=== PATIENT | male | born 1945 | race Caucasian/White ===

== ENCOUNTER 2019-10-04 06:56 | Day surgery (SDC) ==
--- NOTE | 2019-09-20 08:30 | EKG Report ---
Test Performed on : 09/20/2019 08:22:21 AM Test Reason : PAT Blood Pressure : / mmHG Vent. Rate : 074 BPM Atrial Rate : 074 BPM P-R Int : 218 ms QRS Dur : 092 ms QT Int : 400 ms P-R-T Axes : 054 039 019 degrees QTc Int : 444 ms Sinus rhythm. with 1st degree AV block. Otherwise normal ECG When compared with ECG of 19-JUN-2017 12:35, premature ventricular complexes. are no longer present Criteria for Inferior infarct are no longer present Confirmed by Charlie WERNER, P.J.M ([id number]) on 09/20/2019 7:59:10 PM
[2019-09-20 08:50] LABS: URINE SOURCE CLEAN CATCH
[2019-09-20 09:07] LABS: BASO# 0.05 X1000 (0.0-0.2); BASO% 0.7 % (0.0-0.8); EOS# 0.21 X1000 (0.0-0.7); EOS% 2.9 % (0.0-10.0); HEMATOCRIT 44.3 % (42.0-52.0); HEMOGLOBIN 14.5 g/dL (14.0-18.0); LYMPH# 1.62 X1000 (1.2-3.4); LYMPH% 22.3 % (20.5-51.1); MCH 28.8 PG (27-31); MCHC 32.7 g/dL (33-37); MCV 87.9 FL (81-99); MONO# 0.54 X1000 (0.11-0.59); MONO% 7.4 % (1.7-9.3); MPV 10.5 FL (7.4-10.4); NEUT# 4.85 X1000 (1.4-6.5); NEUT% 66.7 % (42.2-75.2); PLT 250 X1000 (130-400); RBC 5.04 XMIL (4.7-6.1); RDW 13.6 % (11.5-14.5); WBC 7.27 X1000 (4.8-10.8)
[2019-09-20 09:10] LABS: BILIRUBIN URINE NEGATIVE (NEGATIVE); BLOOD URINE NEGATIVE (NEGATIVE); COLOR YELLOW; GLUCOSE URINE NEGATIVE (NEGATIVE); KETONE URINE NEGATIVE (NEGATIVE); LEUKOCYTES URINE SMALL (NEGATIVE); NITRITE URINE NEGATIVE (NEGATIVE); PH URINE 5.5; PROTEIN URINE NEGATIVE (NEGATIVE); SP GRAVITY URINE 1.018; TURBIDITY URINE HAZY (CLEAR); UROBILINOGEN URINE NORMAL (NORMAL)
[2019-09-20 09:12] LABS: UR EPITHELIAL CELLS <10 /HPF (<10); URINE BACTERIA NEGATIVE /HPF; URINE RBC <10 /HPF (<10); URINE WBC <10 /HPF (<10)
[2019-09-20 09:21] LABS: INR 1.98; PROTIME 22.9 Seconds (11.0-16.0)
[2019-09-20 09:24] LABS: PTT 40.2 Seconds (22.3-41.8)
[2019-09-20 09:37] LABS: HEMOGLOBIN A1C 5.6 % (4.8-6.0)
[2019-09-20 09:42] LABS: CALCIUM 9.1 mg/dL (8.8-10.2); CREATININE 1.2 mg/dL (0.7-1.2); POTASSIUM 3.7 mmol/L (3.5-5.1)
[2019-10-04] MEDS ORDERED: REGLAN ONE (07:27)
[2019-10-04] MEDS ORDERED: COLACE ONE (07:27)
[2019-10-04] MEDS ORDERED: PEPCID ONE (07:27)
[2019-10-04] MEDS ORDERED: LYRICA ONE (07:28)
[2019-10-04] MEDS ORDERED: KEFZOL 1 GM/D5W 0 GM/0 ML IVPB ONE (07:28)
[2019-10-04] MEDS ORDERED: LR 1,000 ML ONE (07:28)
[2019-10-04] MEDS ORDERED: XYLOCAINE-MPF 2% ONE (07:47)
[2019-10-04 07:48] LABS: INR 1.06; PROTIME 13.9 Seconds (11.0-16.0)
[2019-10-04] MEDS ORDERED: DIPRIVAN 1% ONE (07:49)
[2019-10-04] MEDS ORDERED: LOPRESSOR ONE (07:57)
[2019-10-04] MEDS ORDERED: KEFZOL 1 GM/D5W 2 GM/100 ML IVPB ONE (08:54)
[2019-10-04] MEDS ORDERED: MARCAINE 0.25% PF ONE (09:15)
[2019-10-04] MEDS ORDERED: DURAMORPH ONE (09:15)
[2019-10-04] MEDS ORDERED: VANCOMYCIN ONE (09:16)
[2019-10-04] MEDS ORDERED: TORADOL ONE (09:16)
[2019-10-04] MEDS ORDERED: EXPAREL 1.3% ONE (09:16)
[2019-10-04] MEDS ORDERED: SODIUM CHLORIDE 0.9% ONE (09:16)
[2019-10-04] MEDS ORDERED: FENTANYL ONE (09:48)
[2019-10-04] MEDS ORDERED: ZOFRAN ONE (10:03)
[2019-10-04] MEDS ORDERED: DECADRON ONE (10:03)
[2019-10-04] MEDS ORDERED: OFIRMEV 1000 MG/ISOTONIC SOLN 1,000 MG/100 ML BOTTLE ONE (10:03)
[2019-10-04] MEDS ORDERED: ROBINUL ONE ×2 (10:04→10:30)
[2019-10-04] MEDS: CYKLOKAPRON 1,000 MG/NS 2,000 MG/200 ML IVPB ONE ×2 (10:12→11:26)
[2019-10-04] MEDS ORDERED: EPHEDRINE ONE (10:12)
[2019-10-04] MEDS ORDERED: NEO-SYNEPHRINE ONE (10:31)
[2019-10-04] MEDS ORDERED: SODIUM CHLORIDE 0.9% 10 ML ONE (10:31)
[2019-10-04] MEDS ORDERED: PITRESSIN ONE (11:24)
[2019-10-04] MEDS ORDERED: NS 1,000 ML ONE (12:14)
[2019-10-04 12:16] LABS: URINE SOURCE CATH
[2019-10-04 12:20] LABS: BILIRUBIN URINE NEGATIVE (NEGATIVE); BLOOD URINE NEGATIVE (NEGATIVE); COLOR YELLOW; GLUCOSE URINE NEGATIVE (NEGATIVE); KETONE URINE NEGATIVE (NEGATIVE); LEUKOCYTES URINE NEGATIVE (NEGATIVE); NITRITE URINE NEGATIVE (NEGATIVE); PROTEIN URINE NEGATIVE (NEGATIVE); SP GRAVITY URINE 1.014; TURBIDITY URINE CLEAR (CLEAR); UROBILINOGEN URINE NORMAL (NORMAL)
[2019-10-04 12:21] LABS: UR EPITHELIAL CELLS <10 /HPF (<10); URINE BACTERIA NEGATIVE /HPF; URINE RBC <10 /HPF (<10); URINE WBC <10 /HPF (<10)
--- NOTE | 2019-10-04 13:03 | Diag Imaging Result Doc PS360 ---
EXAM: KNEE 1-2 VIEWS-RIGHT HISTORY: right TKA TECHNIQUE: Two views COMPARISON: None. FINDINGS: Recent orthopedic replacement of the right knee. There are anterior skin boubacar and a superior surgical drain. No fracture. No dislocation. IMPRESSION: Good alignment to the femoral and tibial components of the recently replaced right knee. Electronically signed by Filippo Concepcion 10/04/2019 1:01 PM
[2019-10-04] MEDS ORDERED: FLU VACCINE IM ONE (13:12)
[2019-10-04] MEDS ORDERED: NITROGLYCERIN SL PRN (13:27)
[2019-10-04] MEDS ORDERED: OXY IR PO PRN ×2 (13:30)
[2019-10-04] MEDS ORDERED: MORPHINE IV PRN ×3 (13:30)
[2019-10-04] MEDS ORDERED: ZOFRAN PO PRN (13:30)
[2019-10-04] MEDS ORDERED: PROTONIX PO SCH (17:00)
[2019-10-04] MEDS: KEFZOL 2 GM/D5W 2 GM/50 ML IVPB IV SCH (17:02)
[2019-10-04] MEDS: TYLENOL PO SCH ×2 (17:02→20:56)
[2019-10-04] MEDS: COLACE PO SCH (20:56)
[2019-10-04] MEDS: RANEXA PO SCH (20:57)
[2019-10-04] MEDS: LOPRESSOR PO SCH (20:57)
[2019-10-04] MEDS: NS 1,000 ML IV SCH (20:58)
[2019-10-04] MEDS ORDERED: ZOCOR PO SCH (21:00)
[2019-10-04] MEDS ORDERED: FLOMAX PO SCH (21:00)
--- NOTE | 2019-10-04 23:07 | OPERATIVE NOTE ---
PROCEDURE DATE: 10/04/2019 PREOPERATIVE DIAGNOSIS: Degenerative arthritis of the right knee. POSTOPERATIVE DIAGNOSIS: Degenerative arthritis of the right knee. PROCEDURE: Right total knee arthroplasty. IMPLANTS: DePuy size 6 posterior stabilized femur, a size 5 tibial tray with an 8 mm rotating platform tibial insert, and a 35 mm medialized anatomic patella. SURGEON: Asif Cervantes MD PAPER REWINDER: CALLY Bañuelos who was necessary for proper retraction and manipulation of the extremities during the case. [employer] PRINCIPAL: Angel Deng RN. ANESTHESIA: Spinal. IV FLUIDS: 2200 mL of lactated Ringer. ESTIMATED BLOOD LOSS: 30 mL. TOURNIQUET TIME: 90 minutes at 300 mmHg. COMPLICATIONS: None. INDICATION: The patient is a 74-year-old male with a chronic history of worsening pain and discomfort of the left knee. His pain has progressed to affect his activities of daily living. X- rays did reveal degenerative arthritis, and recommendation to proceed with right total knee arthroplasty was offered. Risks of surgery were explained, including the risks of anesthesia, , bleeding, infection, failure to relieve pain, postoperative stiffness, nerve injury, blood clots, and other imponderables. All questions were answered. The patient and family wished to proceed with surgery. DESCRIPTION OF OPERATION: The patient was taken to the operating room and underwent spinal anesthesia. After adequate anesthesia was obtained, he was placed supine on the operating table. Right lower extremity was subsequently prepped and draped in usual sterile fashion. An Esmarch was used to exsanguinate the right lower extremity. Tourniquet was inflated to 300 mmHg. Standard anterior incision was made with skin knife. Medial and lateral skin envelopes were developed. Standard medial parapatellar arthrotomy was then performed. Patella fat pad was excised. Retractor was then placed. Approximately 1 cm anterior to the PCL insertion, a starting reamer was passed. Intramedullary guide with a distal femoral cutting block was pinned in position and had good alignment confirmed with the alignment yves. Distal femoral cutting block was pinned in position, and distal femoral cut was then performed. A sizing block was placed and measured size 6. Corresponding pins were placed. Anterior, posterior, and chamfer cuts were then made. Attention was turned to the proximal tibia where using an extramedullary guide, the proximal tibia cutting block was pinned in position and had good alignment, confirmed with the alignment yves. The proximal tibia was then resected. Medial and lateral menisci were excised. A curved osteotome was used to remove the posterior osteophytes off the distal femur. A spacer block was then placed and good soft tissue balance with flexion and extension. Attention was then turned to the proximal tibia where a size 5 tibial tray appeared to be correct size. This was pinned in position. This was followed by a central reamer and a fin punch. A box cutting guide was pinned on the distal femur. A box cut was performed. A trial femoral component was then placed, and two lug holes were drilled. A trial tibial insert was then placed and had good soft tissue balancing. The patella had been everted prior to the resection of the cutting of the femur, and resection had been performed in standard fashion. A protective disk was placed through the remaining portion of the case. Once attention was turned back to the tibia, the protective disk was removed, and a size 35 appeared to be correct size. Corresponding holes were drilled. The trial patella component was then placed and had good patellofemoral tracking. Trial components were then removed. Copious irrigation performed with antibiotic pulsatile lavage while vancomycin was mixed with cement on back table. Sequential cementing was then performed first with the tibial tray and excess cement was removed with a [place] followed by a femoral component and excess cement removed with a [place] followed by trial tibial insert in full extension. Axial loading was maintained while cement cured. The patella component was cemented in standard fashion. Patella clamp was placed. While cement was curing, Exparel was placed in deep soft tissue, as well as subcutaneous tissue. After cement cured, cement was removed with a small osteotome. The size 8 mm rotating platform tibial insert appeared to be correct size. This was removed. The trial insert was removed. The wound was copiously irrigated. The 8 mm rotating platform tibial insert was then placed. The knee was then carried through range of motion. Good range of motion, good soft tissue balance, good patellofemoral tracking. A 1/8 Hemovac drain was placed and was not sewn in. Copious irrigation was performed with antibiotic pulsatile lavage. #1 Vicryl was used to repair the arthrotomy followed by 2-0 Vicryl to repair the subcutaneous tissue and skin boubacar. Adaptic, sterile 4 x 4s, Webril, and a cryo unit were applied to the right lower extremity. Patient tolerated the procedure well with no complications and transferred to recovery room in stable condition. cc: Asif Cervantes MD
[2019-10-05] MEDS: NS 1,000 ML IV SCH ×2 (01:22→08:13)
[2019-10-05] MEDS: PERIDEX MT SCH ×2 (01:23→09:22)
[2019-10-05] MEDS: KEFZOL 2 GM/D5W 2 GM/50 ML IVPB IV SCH (01:30)
[2019-10-05] MEDS: TYLENOL PO SCH ×3 (02:35→09:22)
[2019-10-05] MEDS ORDERED: XARELTO PO SCH ×2 (06:00→09:00)
[2019-10-05 07:16] LABS: HEMATOCRIT 41.6 % (42.0-52.0); HEMOGLOBIN 13.8 g/dL (14.0-18.0)
[2019-10-05 07:22] LABS: AGAP 13; BUN 13 mg/dL (8-22); CALCIUM 8.8 mg/dL (8.8-10.2); CHLORIDE 105 mmol/L (98-107); COSMO 284; ESTIMATED GFR > 60; GLUCOSE 111 mg/dL (70-104); POTASSIUM 3.9 mmol/L (3.5-5.1); SODIUM 142 mmol/L (136-145); TCO2 24 mmol/L (25-35)
[2019-10-05 07:36] VITALS: BP 116/65
[2019-10-05] MEDS ORDERED: ASPIRIN PO SCH (09:00)
[2019-10-05] MEDS ORDERED: CYMBALTA PO SCH (09:00)
[2019-10-05] MEDS: RANEXA PO SCH (09:21)
[2019-10-05] MEDS: COLACE PO SCH (09:21)
[2019-10-05] MEDS: LOPRESSOR PO SCH (09:22)
--- NOTE | 2019-10-05 14:22 | ORTHOPAEDICS PROGRESS NOTE ---
DATE: 10/05/2019 SUBJECTIVE: Mr. Phillips is status post day 1 of a total knee arthroplasty. He denies any complaints at this time and states that he rested well throughout the night with no complaints of pain. OBJECTIVE: Mr. Phillips's surgical dressing has been changed and his drain has been removed this morning. His dressing is clean, dry, and intact to his surgical incision at this time. There is no surrounding redness at this time. His calf is soft. He has active dorsiflexion and plantar flexion of his right foot and his sensation is intact distally to his surgery. His cap refill is less than 2 seconds. His labs this morning reveal a hemoglobin and hematocrit of 13.8 and 41.6, which is stable from his preop hemoglobin and hematocrit.Vital Signs: His temp is 97.4 degrees, his heart rate is 62, blood pressure is 112/62, and he is 96% on room air. ASSESSMENT: Status post day 1 right total knee arthroplasty. PLAN: Mr. Phillips will begin his physical therapy tomorrow at [facility] physical therapy. He will be restarting his Xarelto back that he was on prior to surgery for DVT prophylaxis. We will see him back in the office on 10/16/2019 and his boubacar will be removed at that time. He was instructed on postoperative complications including infection. All questions were answered at this time. Dictated by CALLY Bañuelos for Asif Cervantes MD cc: Asif Cervantes MD
== END 2019-10-05 13:10 | disposition home or self-care (01) ==
LOC: 4N 06:56 → OR 06:56
PROVIDERS: ATTEND Orthopaedic Surgery Adult Reconstructive Orthopaedic Surgery